=== PATIENT | male | born 1990 | race Caucasian/White ===

== ENCOUNTER 2019-07-10 21:12 | Inpatient (IN) | payer BC, OTHER ==
[~2019-07-10] VITALS: Ht 175.3 cm; Wt 63.5 kg
[2019-07-10 22:22] LABS: Eosinophils # (auto) 0.6 uL; Lymphocytes # (auto) 1.9 uL; Mean Corpuscular Hemoglobin 28.5 pg (28.0-32.0); Platelet Count (auto) 518 10^3/uL (140-450)
[2019-07-10 22:23] LABS: Basophils # (auto) 0.2 uL; Eosinophils % (auto) 3.2 % (0.0-7.0); Hematocrit 41.3 % (41.0-53.0); Hemoglobin 13.8 g/dL (13.5-17.5); Lymphocytes % (auto) 9.5 % (10.0-50.0); Mean Corpuscular Hgb Conc. 33.5 g/dL (32.0-36.0); Mean Corpuscular Volume 84.9 fL (80.0-100.0); Monocytes # (auto) 1.5 uL; Monocytes % (auto) 7.7 % (0.0-12.0); Neutrophils # (auto) 15.5 uL; Neutrophils % (auto) 78.6 % (37.0-80.0); Red Blood Cells 4.86 10^6/uL (4.5-5.90); Red Cell Distribution Width 12.4 % (11.8-14.3); White Blood Cell 19.7 10^3/uL (4.4-10.8)
[2019-07-10 22:38] LABS: Albumin 2.8 g/dL (3.4-5.0); BUN/Creatinine Ratio 7.1; Calcium 9.4 mg/dL (8.5-10.1)
[2019-07-10 22:41] LABS: Bilirubin, Total 0.3 mg/dL (0.2-1.0); Total Protein 8.7 g/dL (6.4-8.2)
[2019-07-10 23:51] LABS: Urine Bacteria FEW /hpf (None Seen); Urine Blood 1+ /uL (Negative); Urine Hyaline Cast MANY /lpf (0 - 2); Urine Mucus MANY (None Seen); Urine Specific Gravity 1.024 (1.001-1.035); Urine WBC 31 /hpf (0 - 3)
[2019-07-11] MEDS ORDERED: SODIUM CHLORIDE 0.9% 2,000 ML IV ONE (00:45)
[2019-07-11] MEDS ORDERED: MORPHINE SULFATE 4 MG/ML SYR/VIAL IV ONE (00:45)
[2019-07-11] MEDS ORDERED: ONDANSETRON HCL 4 MG/2 ML VIAL IV ONE (00:45)
[2019-07-11] MEDS ORDERED: IOHEXOL 300 MG/ML 100ML BOTTLE IJ ONE (01:13)
[2019-07-11] MEDS ORDERED: SODIUM CHLORIDE 0.9% 1,000 ML IV ONE (02:00)
[2019-07-11] MEDS ORDERED: VANCOMYCIN PER PHARMACY 0 MG IV SCH (04:45)
[2019-07-11] MEDS ORDERED: PIPERACILLIN-TAZOB 3.375GM 100 ML IV ONE (04:45)
[2019-07-11] MEDS ORDERED: PANTOPRAZOLE 40 MG/10 ML VIAL INJ IV ONE ×2 (04:45→05:11)
[2019-07-11] MEDS ORDERED: PANTOPRAZOLE 80 MG in SODIUM CHL 0.9% 60 ML IV ONE (04:45)
[2019-07-11] MEDS ORDERED: SORE THROAT SPRAY 6OZ BOTTLE MT ONE (05:15)
[2019-07-11] MEDS ORDERED: VANCOMYCIN 1GM/250ML 250 ML IV ONE (06:00)
[2019-07-11] MEDS ORDERED: metroNIDAZOLE 500MG/100ML 100 ML IV ONE (07:30)
[2019-07-11] MEDS ORDERED: LOPERAMIDE HCL 2 MG CAP PO PRN (07:30)
[2019-07-11] MEDS ORDERED: TEMAZEPAM 15 MG CAP PO PRN (07:30)
[2019-07-11] MEDS ORDERED: HYDROcodone-ACET 5/325MG TAB PO PRN (07:30)
[2019-07-11] MEDS ORDERED: methylPREDNISolone SOD SUCC 125 MG/2 ML VL IV ONE (07:30)
[2019-07-11] MEDS ORDERED: ACETAMINOPHEN 325 MG TAB PO PRN (07:30)
[2019-07-11] MEDS ORDERED: ONDANSETRON HCL 4 MG/2 ML VIAL IV PRN (07:30)
[2019-07-11] MEDS: cefTRIAXone 1GM/50ML D5W 50 ML IV SCH (09:19)
--- NOTE | 2019-07-11 09:35 | NUR ---
[facility] admit from ER Patient admitted to [facility]. Patient oriented to primary RN, unit, room, bed, and unit policies regarding patient care and visiting hours. Patient awake and alert with no S/S of distress/SOB or pain noted. Bed in lowest, locked position with side rails up x2 and call light within reach.Patient encouraged to call if they need something. All questions and concerns addressed, patient verbalized understanding.Will continue to monitor Q1hr/PRN.
[2019-07-11 09:47] VITALS: BP 124/79
[2019-07-11 10:00] VITALS: BP 124/79
[2019-07-11] MEDS: SODIUM CHLORIDE 0.9% 1,000 ML IV SCH ×2 (10:00→20:51)
[2019-07-11 11:31] VITALS: BP 122/72
--- NOTE | 2019-07-11 11:31 | NUR ---
FAMILY Patient's mother at bedside.
[2019-07-11] MEDS: SULFASALAZINE 500 MG TAB PO SCH ×3 (12:08→21:57)
--- NOTE | 2019-07-11 12:47 | NUR ---
IV Left AC IV catheter removed per patient's request, states that it was "really hurting". Catheter intact and pressure dressing applied. Patient still have available IV access on right forearm.
[2019-07-11] MEDS: metroNIDAZOLE 500MG/100ML 100 ML IV SCH ×2 (14:33→21:57)
[2019-07-11 16:33] VITALS: BP 111/72
[2019-07-11] MEDS: VANCOMYCIN 750mg/250ml 250 ML IV SCH (18:31)
[2019-07-11] MEDS: PANTOPRAZOLE 40 MG TAB PO SCH (21:57)
[2019-07-11 22:00] VITALS: BP 118/71
--- NOTE | 2019-07-12 00:50 | NUR ---
TRANSFER OF CARE Transferred care of patient to [facility].
[2019-07-12 05:00] VITALS: BP 120/68
[2019-07-12] MEDS: metroNIDAZOLE 500MG/100ML 100 ML IV SCH ×2 (05:18→13:08)
[2019-07-12] MEDS: SODIUM CHLORIDE 0.9% 1,000 ML IV SCH (05:21)
[2019-07-12 05:42] LABS: Basophils # (auto) 0.2 uL; Basophils % (auto) 0.8 % (0.0-2.0); Eosinophils # (auto) 0 uL; Hematocrit 36.8 % (41.0-53.0); Lymphocytes # (auto) 1.1 uL; Mean Corpuscular Hemoglobin 27.5 pg (28.0-32.0); Mean Corpuscular Hgb Conc. 32.5 g/dL (32.0-36.0); Mean Corpuscular Volume 84.6 fL (80.0-100.0); Monocytes # (auto) 1.7 uL; Monocytes % (auto) 6.4 % (0.0-12.0); Neutrophils # (auto) 23.6 uL; Neutrophils % (auto) 88.8 % (37.0-80.0); Platelet Count (auto) 448 10^3/uL (140-450); Red Blood Cells 4.35 10^6/uL (4.5-5.90); Red Cell Distribution Width 12.8 % (11.8-14.3); White Blood Cell 26.6 10^3/uL (4.4-10.8)
[2019-07-12 05:53] LABS: Potassium 3.8 mmol/L (3.5-5.1)
[2019-07-12 05:55] LABS: BUN/Creatinine Ratio 7.9
[2019-07-12] MEDS: VANCOMYCIN 750mg/250ml 250 ML IV SCH (06:07)
[2019-07-12] MEDS: SULFASALAZINE 500 MG TAB PO SCH ×2 (06:08→12:14)
[2019-07-12] MEDS: cefTRIAXone 1GM/50ML D5W 50 ML IV SCH (08:27)
[2019-07-12 08:45] VITALS: BP 116/67
[2019-07-12] MEDS: PANTOPRAZOLE 40 MG TAB PO SCH ×2 (10:13→22:40)
--- NOTE | 2019-07-12 10:49 | NUR ---
Dr. Carroll at bedside. MD to discharge the patient today.
--- NOTE | 2019-07-12 10:52 | NUR ---
Dr. Carroll speaking with the family at bedside.
--- NOTE | 2019-07-12 10:55 | NUR ---
Dr. Carroll ordered to advance diet as tolerated, Full Liquid for lunch, Soft diet for dinner, if patient able to tolerate the diet, for possible discharge tomorrow, Sunday.
--- NOTE | 2019-07-12 12:22 | NUR ---
Patient complained of soreness on his throat, only has to spoonfuls of custard on lunch tray. Patient able to tolerate the PO medication/pill. Apple sauce given to patient. Family at bedside. Addendum: 07/12/19 at 1337 by Kusum Paul RN two spoonfuls of custard
[2019-07-12 13:00] VITALS: BP 101/67
--- NOTE | 2019-07-12 13:10 | NUR ---
Patient still complained of painful throat when he swallows food. Will inform Dr. Carroll.
--- NOTE | 2019-07-12 13:20 | NUR ---
Paged Dr. Carroll. Waiting for MD to call back.
--- NOTE | 2019-07-12 14:12 | NUR ---
Placed patient on O2 at 3 LPM after complaining that he feels like his throat is closing. Patient complained of pink rashes on his upper back, patient stated he could have a reaction from Flagyl. Will page Dr. Carroll again.
--- NOTE | 2019-07-12 14:21 | NUR ---
Paged Dr. Carroll again. Waiting for Dr. Carroll to call back.
--- NOTE | 2019-07-12 15:30 | NUR ---
Dr. Carroll called back. Informed MD that patient complained of throat pain, asking for a throat spray, patient also complained of having allergic reaction to Flagyl that it could be the cause of his feeling like his throat is closing. Dr. Carroll ordered throat spray, stop the Flagyl, ordered Clindamycin.
[2019-07-12] MEDS ORDERED: SORE THROAT SPRAY 6OZ BOTTLE MT PRN (15:45)
[2019-07-12 16:42] VITALS: BP 114/71
--- NOTE | 2019-07-12 16:56 | NUR ---
Called the Pharmacy for the Chloraseptic throat spray. Pharmacist to call back if it's available.
[2019-07-12] MEDS ORDERED: methylPREDNISolone SOD SUCC 40 MG/ML VL IV ONE (17:15)
[2019-07-12] MEDS: SOD CHL 0.9%/ KCL 20MEQ 1,000 ML IV SCH (17:34)
--- NOTE | 2019-07-12 19:30 | NUR ---
Opening Shift Note Assumed care of patient, awake and alert. No S/S of distress/SOB or pain. States his sore throat is feeling better. No adverse reactions to medications at this time. IV to right arm patent and infusing per orders. Very pleasant. Steady gait. Instructed on POC and to call for assist PRN, will continue to monitor for changes Q1hr and PRN.
[2019-07-12 21:33] VITALS: BP 108/64
[2019-07-12] MEDS: CLINDAMYCIN 300MG IV 50 ML IV SCH (22:40)
[2019-07-12] MEDS: methylPREDNISolone SOD SUCC 40 MG/ML VL IV SCH (22:40)
[2019-07-13] MEDS: SOD CHL 0.9%/ KCL 20MEQ 1,000 ML IV SCH ×2 (01:50→10:10)
[2019-07-13 04:47] VITALS: BP 106/62
[2019-07-13] MEDS: CLINDAMYCIN 300MG IV 50 ML IV SCH ×2 (06:17→14:19)
[2019-07-13 06:50] LABS: Eosinophils # (auto) 0 uL; Hemoglobin 12.2 g/dL (13.5-17.5); Monocytes # (auto) 1.2 uL; Red Cell Distribution Width 12.8 % (11.8-14.3)
[2019-07-13 06:56] LABS: Basophils # (auto) 0 uL; Basophils % (auto) 0.2 % (0.0-2.0); Hematocrit 35.7 % (41.0-53.0); Lymphocytes % (auto) 4.5 % (10.0-50.0); Mean Corpuscular Hgb Conc. 34.1 g/dL (32.0-36.0); Monocytes % (auto) 5.7 % (0.0-12.0); Neutrophils # (auto) 19.8 uL; Neutrophils % (auto) 89.6 % (37.0-80.0); Platelet Count (auto) 474 10^3/uL (140-450); Red Blood Cells 4.19 10^6/uL (4.5-5.90); White Blood Cell 22.1 10^3/uL (4.4-10.8)
[2019-07-13 07:06] LABS: Magnesium 2.3 mg/dL (1.6-2.6); Potassium 4.1 mmol/L (3.5-5.1)
[2019-07-13 07:19] LABS: Albumin 2.6 g/dL (3.4-5.0); BUN/Creatinine Ratio 6.9; Bilirubin, Total 0.2 mg/dL (0.2-1.0); CRP High Sensitivity 6.36 mg/dL (< 0.3); Phosphorus 3.4 mg/dL (2.5-4.90); Total Protein 7.7 g/dL (6.4-8.2)
[2019-07-13 07:21] LABS: % Iron Saturation 11.5 % (20-55)
--- NOTE | 2019-07-13 07:21 | NUR ---
Opening Shift Note Assumed care of patient, awake and alert. No S/S of distress/SOB or pain. Instructed on POC and to call for assist PRN, will continue to monitor for changes Q1hr and PRN.
[2019-07-13 08:53] VITALS: BP 107/65
[2019-07-13] MEDS: methylPREDNISolone SOD SUCC 40 MG/ML VL IV SCH (09:30)
[2019-07-13] MEDS: cefTRIAXone 1GM/50ML D5W 50 ML IV SCH (09:30)
[2019-07-13] MEDS: PANTOPRAZOLE 40 MG TAB PO SCH (09:31)
--- NOTE | 2019-07-13 11:45 | NUR ---
ROUNDING MD ESQUIVEL AT BEDSIDE. ALL QUESTIONS AND CONCERNS ADDRESSED AT THIS TIME.
[2019-07-13 12:30] VITALS: BP 113/75
[2019-07-13 14:30] VITALS: BP 107/72
[2019-07-13 16:00] VITALS: BP 100/69
--- NOTE | 2019-07-13 16:45 | NUR ---
Discharge instructions given as ordered. Encourage to follow up with PMD as instructed. All questions and concerns addressed. Patient verbalized understanding. Medication reconciliation form completed and copy given to patient. . IV removed with catheter intact, pressure dressing applied, . Patient taken to vehicle via wheelchair with all personal belongings, accompanied by staff and family member. No distress noted at time of departure.
[2019-07-13] MEDS ORDERED: PRED20TA2 PO (16:54)
[2019-07-13] MEDS ORDERED: CIP500T PO (16:54)
[2019-07-13] MEDS ORDERED: PANT40T PO (16:54)
[2019-07-13] MEDS ORDERED: CLIN-188 PO (16:54)
[2019-07-14 09:38] LABS: Folate (Folic Acid) 3.59 ng/mL (5.38-24)
== END 2019-07-13 16:51 | disposition home or self-care (01) | DRG 386 ==
LOC: ER 21:18 → OVERFLOW 21:19 → WEST WING 07-11 09:46
PROVIDERS: ADMIT Nurse Practitioner; ATTEND Nurse Practitioner
DX: K51.90 Ulcerative colitis, unspecified, without complications (principal); A09 Infectious gastroenteritis and colitis, unspecified; N39.0 Urinary tract infection, site not specified; K90.9 Intestinal malabsorption, unspecified; J39.2 Other diseases of pharynx; K12.0 Recurrent oral aphthae
CPT/HCPCS: 36415; 74177; 80048; 80053; 80061; 80202; 81001; 82150; 82270; 82607; 82746; 83036; 83540; 83550; 83605; 83690; 83735; 84100; 84443; 85025; 86141; 87040; 87086; 96361; 96365; 96367; 96375; C9113; G0378; J0696; J2405; J2543; J3490

== ENCOUNTER 2019-12-08 04:45 | Inpatient (IN) | payer BC, MEDICAID, OTHER ==
[~2019-12-08] VITALS: Ht 175.3 cm; Wt 66.5 kg
[~2019-12-08 04:45] MED LIST: CIP500T PO; CLIN-188 PO; PANT40T PO; PRED20TA2 PO
[2019-12-08] MEDS ORDERED: ACETAMINOPHEN 325 MG TAB PO ONE (05:15)
[2019-12-08] MEDS ORDERED: VANCOMYCIN 1GM/250ML 250 ML IV ONE (05:30)
[2019-12-08] MEDS ORDERED: levoFLOXacin 500MG 100 ML IV ONE (05:30)
[2019-12-08] MEDS ORDERED: SODIUM CHLORIDE 0.9% 1,000 ML IV ONE ×2 (05:30→06:00)
[2019-12-08 05:35] LABS: Basophils # (auto) 0.1 10 ^3/uL (0-0.2); Basophils % (auto) 0.4 % (0.0-2.0); Eosinophils # (auto) 0.1 10 ^3/uL (0-0.8); Eosinophils % (auto) 0.3 % (0.0-7.0); Hematocrit 41.1 % (41.0-53.0); Hemoglobin 13.9 g/dL (13.5-17.5); Lymphocytes # (auto) 1.6 10 ^3/uL (0.4-5.4); Lymphocytes % (auto) 6.4 % (10.0-50.0); Mean Corpuscular Hemoglobin 27.6 pg (28.0-32.0); Mean Corpuscular Hgb Conc. 33.8 g/dL (32.0-36.0); Mean Corpuscular Volume 81.8 fL (80.0-100.0); Monocytes # (auto) 2.1 10 ^3/uL (0-1.3); Monocytes % (auto) 8.6 % (0.0-12.0); Neutrophils # (auto) 20.9 10 ^3/uL (1.6-8.6); Neutrophils % (auto) 84.3 % (37.0-80.0); Platelet Count (auto) 388 10^3/uL (140-450); Red Blood Cells 5.02 10^6/uL (4.5-5.90); Red Cell Distribution Width 12.4 % (11.8-14.3); White Blood Cell 24.9 10^3/uL (4.4-10.8)
[2019-12-08 05:56] LABS: Albumin 2.8 g/dL (3.4-5.0); Calcium 8.3 mg/dL (8.5-10.1); Potassium 3.3 mmol/L (3.5-5.1)
[2019-12-08 05:59] LABS: BUN/Creatinine Ratio 5.5; Bilirubin, Total 0.6 mg/dL (0.2-1.0)
[2019-12-08 07:08] LABS: Urine Bacteria FEW /hpf (None Seen); Urine Blood TRACE /uL (Negative); Urine Mucus FEW (None Seen); Urine Specific Gravity 1.003 (1.001-1.035); Urine WBC 2 /hpf (0 - 3)
[2019-12-08] MEDS ORDERED: NITROGLYCERIN 0.4 MG SL TAB SL PRN (07:30)
[2019-12-08] MEDS ORDERED: VANCOMYCIN PER PHARMACY 0 MG IV SCH (07:30)
[2019-12-08] MEDS ORDERED: LOPERAMIDE HCL 2 MG CAP PO PRN (07:30)
[2019-12-08] MEDS ORDERED: ONDANSETRON HCL 4 MG/2 ML VIAL IV PRN (07:30)
[2019-12-08] MEDS ORDERED: ACETAMINOPHEN 325 MG TAB PO PRN (07:30)
[2019-12-08] MEDS ORDERED: MORPHINE SULF INJ 2 MG/ML SYRINGE 1ML IV PRN (07:30)
[2019-12-08] MEDS ORDERED: TEMAZEPAM 15 MG CAP PO PRN (07:30)
[2019-12-08] MEDS ORDERED: SODIUM CHLORIDE 0.9% 1,000 ML IV SCH (07:30)
[2019-12-08] MEDS ORDERED: HYDROcodone-ACET 5/325MG TAB PO PRN (07:30)
[2019-12-08] MEDS: cefTRIAXone 1GM/50ML D5W 50 ML IV SCH (08:47)
[2019-12-08] MEDS: SOD CHL 0.9%/ KCL 20MEQ 1,000 ML IV SCH ×2 (09:01→18:24)
[2019-12-08] MEDS: PANTOPRAZOLE 40 MG/10 ML VIAL INJ IV SCH (09:33)
[2019-12-08] MEDS: methylPREDNISolone SOD SUCC 40 MG/ML VL IV SCH ×2 (09:33→22:00)
[2019-12-08] MEDS: VANCOMYCIN 750mg/250ml 250 ML IV SCH ×2 (09:34→22:00)
[2019-12-08] MEDS ORDERED: MESA800T2 PO (11:23)
[2019-12-08 12:56] VITALS: BP 115/74
[2019-12-08] MEDS ORDERED: POTASSIUM EFFERVESENT TAB 25 MEQ PO ONE (16:15)
[2019-12-08 16:44] VITALS: BP 111/69
[2019-12-08] MEDS: Ensure HIGH Protein Chocolate 8oz Bottle PO SCH (18:25)
[2019-12-08 20:00] VITALS: BP 108/60
[2019-12-08 22:00] VITALS: BP 108/60
[2019-12-09 05:00] VITALS: BP 103/63
[2019-12-09 05:43] LABS: Basophils # (auto) 0 10 ^3/uL (0-0.2); Basophils % (auto) 0.1 % (0.0-2.0); Eosinophils # (auto) 0 10 ^3/uL (0-0.8); Hematocrit 34.8 % (41.0-53.0); Hemoglobin 11.6 g/dL (13.5-17.5); Lymphocytes # (auto) 0.8 10 ^3/uL (0.4-5.4); Lymphocytes % (auto) 4.2 % (10.0-50.0); Mean Corpuscular Hemoglobin 27.5 pg (28.0-32.0); Mean Corpuscular Hgb Conc. 33.2 g/dL (32.0-36.0); Mean Corpuscular Volume 82.8 fL (80.0-100.0); Monocytes # (auto) 0.7 10 ^3/uL (0-1.3); Monocytes % (auto) 3.6 % (0.0-12.0); Neutrophils # (auto) 17.3 10 ^3/uL (1.6-8.6); Neutrophils % (auto) 92.1 % (37.0-80.0); Platelet Count (auto) 347 10^3/uL (140-450); Red Blood Cells 4.21 10^6/uL (4.5-5.90); Red Cell Distribution Width 12.7 % (11.8-14.3); White Blood Cell 18.8 10^3/uL (4.4-10.8)
[2019-12-09] MEDS: SOD CHL 0.9%/ KCL 20MEQ 1,000 ML IV SCH (05:49)
[2019-12-09 06:00] LABS: Albumin 2.2 g/dL (3.4-5.0); Calcium 8.1 mg/dL (8.5-10.1); Potassium 4.4 mmol/L (3.5-5.1)
[2019-12-09 06:05] LABS: BUN/Creatinine Ratio 7.1; Bilirubin, Total 0.3 mg/dL (0.2-1.0); Total Protein 6.5 g/dL (6.4-8.2)
[2019-12-09 08:43] VITALS: BP 99/63
[2019-12-09] MEDS: Ensure HIGH Protein Chocolate 8oz Bottle PO SCH ×2 (08:46→13:14)
[2019-12-09] MEDS: cefTRIAXone 1GM/50ML D5W 50 ML IV SCH (09:04)
[2019-12-09] MEDS: PANTOPRAZOLE 40 MG/10 ML VIAL INJ IV SCH (09:04)
[2019-12-09] MEDS: methylPREDNISolone SOD SUCC 40 MG/ML VL IV SCH (09:05)
[2019-12-09] MEDS: VANCOMYCIN 750mg/250ml 250 ML IV SCH (09:43)
[2019-12-09 12:31] VITALS: BP 112/66
[2019-12-09 14:40] VITALS: BP 112/66
[2019-12-09] MEDS ORDERED: PIPERACILLIN-TAZOB 3.375GM 100 ML IV SCH (18:00)
== END 2019-12-09 16:15 | disposition home or self-care (01) | DRG 245 ==
LOC: ER 04:45 → TELE 04:46 → TELE-WESTW 10:30
PROVIDERS: ADMIT Nurse Practitioner; ATTEND Internal Medicine
DX: K51.90 Ulcerative colitis, unspecified, without complications (principal); E44.0 Moderate protein-calorie malnutrition; E87.1 Hypo-osmolality and hyponatremia; E87.6 Hypokalemia; F17.200 Nicotine dependence, unspecified, uncomplicated; Z88.8 Allergy status to other drugs, medicaments and biological substances; Z91.81 History of falling; Z68.20 Body mass index [BMI] 20.0-20.9, adult
CPT/HCPCS: 36415; 70450; 71250; 72125; 74176; 80053; 81001; 82270; 82607; 83605; 84443; 85025; 87040; 87045; 87427; 87493; 96365; C9113; G0378; J0696; J1956